=== PATIENT | male | born 1950 | race Caucasian/White ===

== ENCOUNTER 2019-06-08 13:13 | Observation (INO) | payer MEDICARE ==
[2019-06-08] MEDS ORDERED: Dexamethasone 10 MG/ML VIAL ONE (14:05)
[2019-06-08] MEDS ORDERED: Ondansetron PF 4 MG/2 ML Vial ONE (14:05)
[2019-06-08] MEDS ORDERED: Meclizine HCl 25 MG TAB ONE (14:05)
[2019-06-08 14:06] LABS: #Lymphocytes 0.8 thou/uL (1.20-3.40); #Monocytes 0.4 thou/uL (0.11-0.59); %Basophils 0.2 % (0.0-1.0); %Eosinophils 0.4 % (0.0-10.0); %Lymphocytes 8.3 % (21.0-51.0); %Monocytes 4.1 % (0.0-10.0); Hemoglobin 15.5 g/dL (14.0-18.0); Mean Corpuscular HGB CONC 34.7 g/dL (32.0-36.0); Mean Corpuscular Hemoglobin 33.5 pg (27.0-31.0); Mean Corpuscular Volume 96.5 fL (78.0-98.0); Mean Platelet Volume 8.2 fL (7.4-10.4); Platelet Count 229 thou/uL (130-400); RBC Distribution Width 11.2 % (11.5-14.5); Red Blood Cell (RBC) Count 4.63 mill/uL (4.70-6.10); White Blood Cell (WBC) Count 9.2 thou/uL (4.8-10.8)
[2019-06-08 14:32] LABS: ALT (SGPT) 29 U/L (8-55); AST (SGOT) 29 U/L (5-34); Albumin 4.3 g/dL (3.4-4.8); Alkaline Phosphatase 44 U/L (40-110); Anion Gap 16 mmol/L (10-20); BUN (Urea Nitrogen) 13 mg/dL (8.4-25.7); Bilirubin, Total 0.6 mg/dL (0.2-1.2); CK (CPK) 209 U/L (30-200); Calc. Creatinine Clearance 0 mL/min (70-130); Calcium 10.2 mg/dL (7.8-10.44); Carbon Dioxide 22 mmol/L (23-31); Chloride 104 mmol/L (98-107); Estimated GFR-MDRD 59; Globulin 2.5 g/dL (2.4-3.5); Glucose 121 mg/dL (80-115); Potassium 4.3 mmol/L (3.5-5.1); Protein, Total 6.8 g/dL (5.8-8.1); Sodium 138 mmol/L (136-145)
--- NOTE | 2019-06-08 14:34 | CT ---
CT BRAIN WITHOUT CONTRAST: HISTORY: Dizziness, headache, previous stroke in 2010. FINDINGS: There are old infarctions in the left frontal lobe and the left external capsule. There is appropria te ipsilateral dilatation of the left lateral ventricle. No evidence of acute infarct, hemorrhage, m idline shift, or abnormal extraaxial fluid collections is seen. The bony calvarium is intact. The v isualized paranasal sinuses and mastoid air cells are well aerated. IMPRESSION: No CT evidence of acute intracranial process. POS: [facility]
--- NOTE | 2019-06-08 14:45 | RAD ---
CHEST 1 VIEW: HISTORY: Dizziness. COMPARISON: None. FINDINGS: Lungs are clear. No pneumothorax or effusion. Cardiac silhouette and mediastinal contours within no rmal limits. Moderate degenerative change acromioclavicular joints. IMPRESSION: No acute intrathoracic abnormality. POS: [facility]
[2019-06-08 14:54] LABS: CKMB 4.8 ng/mL (0-6.6)
[2019-06-08 15:18] LABS: Bilirubin Negative (Negative); Blood, Urine Negative (Negative); Clarity Clear (Clear); Glucose, Urine (Dipstick) Normal (Negative); Leukocyte Negative Leu/uL (Negative); Nitrite Negative (Negative); Protein, Urine (Dipstick) 10 mg/dL (Neg-Trace); Urobilinogen Normal mg/dL (Less than 2)
[2019-06-08] MEDS ORDERED: Aspirin Chewable 81 MG TAB ONE (15:31)
--- NOTE | 2019-06-08 16:00 | MRI ---
MRI BRAIN WITHOUT CONTRAST: 06/08/19 INDICATIONS: Dizziness. COMPARISON: Comparison made to CT scan of head earlier today. FINDINGS: There is evidence of old infarct involving the left parasylvian region with volume loss and ex vacuo dilatation of the left lateral ventricle. Surrounding gliosis is present. There is no evidence of restricted diffusion. No evidence of acute infarct or mass. Evaluation of intracranial internal carotid arteries shows evidence of occlusion o the left intracran ial internal carotid artery. The left middle cerebral artery shows flow void indicating contralateral flow from the [place]. The anterior cerebral arteries, right middle cerebral, posterior cer ebral and basilar artery show flow voids. Dural venous sinuses are patent. The paranasal sinuses and mastoids appear clear. IMPRESSION: 1. Old infarct involving the left middle cerebral artery territory. 2. No acute infarct. 3. 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 Recommend further gisele luation of extracranial carotid arteries to assess site of occlusion. POS: [facility]
[2019-06-08] MEDS ORDERED: Diazepam 5 MG TAB PO PRN (17:48)
[2019-06-08] MEDS ORDERED: Acetaminophen 325 MG TAB PO PRN (17:49)
[2019-06-08] MEDS ORDERED: Senokot S 8.6-50 MG TAB PO PRN (17:49)
[2019-06-08 19:04] LABS: Troponin I 0.016 ng/mL (< 0.028)
[2019-06-08 19:45] VITALS: BMI 29.2
[2019-06-08] MEDS ORDERED: Diazepam 10 MG/2 ML SYRINGE IVP SCH (20:00)
[2019-06-08] MEDS: Meclizine HCl 25 MG TAB PO SCH (20:30)
[2019-06-08] MEDS ORDERED: Famotidine 20 MG TAB PO SCH (21:00)
[2019-06-08 21:22] LABS: Troponin I 0.014 ng/mL (< 0.028)
[2019-06-09] MEDS: Sodium Chloride 0.9% 1,000 ML IV SCH ×2 (00:17→15:16)
--- NOTE | 2019-06-09 00:36 | HP ---
PCP: None. CHIEF COMPLAINT: Dizziness. HISTORY OF PRESENT ILLNESS: Mr. 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 He reports intermittent feelings of vertigo, initial onset last Tuesday. Reports that he went to bed when he woke up around midnight last Tuesday, dizziness was much better. Reports that he got up this morning, came to work, came about 9 o'clock in the morning, reports that the dizziness returned, became much worse reports that anytime he opened his eyes and looked around. He became quite nauseated. Reports that he has a history of a stroke in 2009, has an occlusion of the internal carotid, which is what causes stroke in 2010. Reports that it is 100% occluded and they decided, in 2009, it was inoperable. He has a history of hypertension, high cholesterol. Reports that he has no residual deficits from the stroke in 2009. Denies any extremity numbness, tingling, or weakness. Denies any facial droop. Denies any speech problems. Dizziness is worse with movement and is slightly improved after meclizine, Decadron, and Zofran were given in the emergency room. The patient had a brain CT while in the emergency room, which showed no evidence of acute intracranial process. The patient then had a brain MRI that showed an old infarct involving the left middle cerebral artery territory. 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 The patient had a slightly elevated troponin in the indeterminate range of 0.034. Subsequent troponins have been negative. Chemistry unremarkable with carbon dioxide at 22, glucose at 121, CK at 209, otherwise within normal limits. White blood cell count 9.2, hemoglobin 15.5, hematocrit 44.7, and platelet count 229. Urine was negative. The patient will be admitted to the stroke unit for further evaluation. REVIEW OF SYSTEMS: The patient reports dizziness. Reports nausea. Denies vomiting. Denies abdominal pain. Denies numbness, tingling, or weakness in extremities. All systems were reviewed and were negative unless mentioned in the HPI. PAST MEDICAL HISTORY: Stroke in 2009, hypertension, and high cholesterol. PAST SURGICAL HISTORY: Bilateral carpal tunnels. PSYCHIATRIC HISTORY: None. SOCIAL HISTORY: Drinks socially. No drug. No smoking history. KNOWN ALLERGIES: None. CURRENT MEDICATIONS: 1. Aspirin 81 mg p.o. once a day. 2. Lipitor 20 mg daily. 3. Benicar 40-12.5 p.o. once a day. PHYSICAL EXAMINATION: VITAL SIGNS: Blood pressure 132/60, pulse is 86, respiratory rate is 12, temperature is 98.2, and pO2 sats are 97% on room air. CONSTITUTIONAL: The patient is alert and oriented to person, place, and time. HEENT: Head is atraumatic and normocephalic. Eyes, pupils are equally round and reactive to light. There is nystagmus present horizontal, which was worsened with head movement. ENT; mouth exam is normal. Mucous membranes are moist. NECK: Normal range of motion. Trachea is midline. RESPIRATORY/CHEST: Breath sounds are clear. Chest expansion is equal. CARDIOVASCULAR: Regular rate and rhythm. Heart sounds are normal. ABDOMEN: Nontender. Bowel sounds are heard. BACK: Normal range of motion. No tenderness. EXTREMITIES: Upper extremities, normal range of motion. Motor strength is normal. Radial pulses are normal. Lower extremities, normal range of motion. Motor strength is normal. Pedal pulses are normal. NEUROLOGIC: The patient is oriented to person, place, and time. Speech is normal. SKIN: Warm, dry, and normal in color that is visualized. DIAGNOSTIC DATA: EKG in the emergency room shows normal sinus rhythm, beats per minute 80, conduction normal, ST segments are normal. PLAN/ASSESSMENT: 1. Echocardiogram. PT and OT evaluation. ENT, Dr. Malone has been consulted. Meclizine 25 mg q.8 hours with some Valium p.r.n. as needed. 2. History of hypertension. We will start home medications. 3. History of hyperlipidemia. We will start home medications and reconciled. 4. Deep venous thrombosis and gastrointestinal prophylaxis has been started. 5. Case discussed with Dr. Gomez who agrees with plan. 6. Hospital course is dependent on clinical findings. Job ID: [id number]
[2019-06-09 05:20] LABS: #Basophils 0.1 thou/uL (0.0-0.2); #Lymphocytes 0.7 thou/uL (1.20-3.40); #Monocytes 0.3 thou/uL (0.11-0.59); #Neutrophils 10.1 thou/uL (1.40-6.50); %Basophils 0.6 % (0.0-1.0); %Eosinophils 0.1 % (0.0-10.0); %Lymphocytes 6.4 % (21.0-51.0); %Monocytes 2.5 % (0.0-10.0); %Neutrophils 90.5 % (42.0-75.0); Hemoglobin 15.3 g/dL (14.0-18.0); Mean Corpuscular HGB CONC 33.8 g/dL (32.0-36.0); Mean Corpuscular Hemoglobin 32.9 pg (27.0-31.0); Mean Corpuscular Volume 97.3 fL (78.0-98.0); Mean Platelet Volume 8.6 fL (7.4-10.4); Platelet Count 228 thou/uL (130-400); RBC Distribution Width 11.3 % (11.5-14.5); Red Blood Cell (RBC) Count 4.66 mill/uL (4.70-6.10); White Blood Cell (WBC) Count 11.2 thou/uL (4.8-10.8)
[2019-06-09] MEDS: Meclizine HCl 25 MG TAB PO SCH ×2 (05:31→15:16)
[2019-06-09 05:32] LABS: Anion Gap 12 mmol/L (10-20); BUN (Urea Nitrogen) 14 mg/dL (8.4-25.7); Calc. Creatinine Clearance 84 mL/min (70-130); Calcium 9.4 mg/dL (7.8-10.44); Carbon Dioxide 25 mmol/L (23-31); Cardiac Risk 2.5 (Less than 4.5); Chloride 104 mmol/L (98-107); Cholesterol 172 mg/dl (< 200 Desired); Estimated GFR-MDRD 69; Glucose 140 mg/dL (80-115); HDL Cholesterol 68 mg/dL (>60 Neg Risk); LDL Cholesterol, Calculated 95 mg/dL; Potassium 4.4 mmol/L (3.5-5.1); Sodium 137 mmol/L (136-145); Triglycerides 45 mg/dL (Less than 150)
[2019-06-09] MEDS ORDERED: Enoxaparin Sodium 40 MG/0.4 ML SYRINGE SC SCH ×2 (09:00→21:00)
[2019-06-09] MEDS ORDERED: Aspirin 81 mg Enteric Coated Tablet PO SCH (09:00)
[2019-06-09] MEDS ORDERED: Atorvastatin Calcium 10 MG TAB PO SCH (09:00)
[2019-06-09] MEDS ORDERED: Prevnar 13-Val Conj/PF 0.5 ML SYRINGE IM ONE (09:00)
[2019-06-09] MEDS ORDERED: methylPREDNISolone Sod Succ/PF 125 MG/2 ML VIAL IVP SCH (12:45)
[2019-06-09] MEDS ORDERED: Scopolamine 1.5 mg/72 hour Patch TD SCH (13:00)
--- NOTE | 2019-06-09 13:21 | PDOC.EVN ---
Event Note - Event Note Event Note: Full code. DPOA-spouse
[2019-06-09 15:35] VITALS: BP 160/74; TEMP 98.2
--- NOTE | 2019-06-09 16:57 | ULT ---
EXAM: Carotid Doppler PROVIDED CLINICAL HISTORY: None COMPARISON: None FINDINGS: Grayscale and color Doppler sonography with spectral analysis was performed of the extracranial carot id system bilaterally. There is atherosclerotic plaque noted involving the distal left internal carotid artery with prominently diminished peak systolic and end diastolic flow, suggesting near occl usion. There is no evidence for a hemodynamically significant right internal carotid artery stenosis by peak systolic velocity or ratio criteria. Antegrade flow is seen in the vertebral arteri es. IMPRESSION: Sonographic findings suggesting near occlusion involving the distal left internal carotid artery.
[2019-06-09] MEDS ORDERED: predniSONE 20 MG TAB PO SCH (17:00)
--- NOTE | 2019-06-09 17:35 | CON ---
DATE OF TELEMEDICINE CONSULTATION: 06/09/2019 CHIEF COMPLAINT: Dizziness. 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 The patient has been dizzy since last week. Last Tuesday or , he became very dizzy. He had vomiting as well. He felt the room was spinning. He did not have any ear symptoms such as tinnitus or hearing loss. He went to recovery room and went to the hotel, he could not open his eyes and again by midnight everything was gone. On Tuesday, he could not work. Tuesday, again he felt dizzy. He felt like something was shifting and yesterday he went back to the hotel. He was unable to work. No history of any weakness or vision loss or double vision is described. It is mostly vertigo and there is no history of loss of consciousness or fall. PREVIOUS MEDICAL HISTORY: The patient had a CVA in 2010. He received tPA at that time. Previous medical history also includes hypertension and hypercholesterolemia. PAST SURGICAL HISTORY: Bilateral carpal tunnel surgery, left carotid 100% blockage. FAMILY HISTORY: The patient's mother at 96 from CVA. Father at 63. He was a smoker. He had adenocarcinoma which was metastatic throughout. He has 2 sisters who are healthy and a daughter who is healthy. SOCIAL HISTORY: He drinks socially. No alcohol or smoking. No drug or smoking history and works as a nurse director social welfare. Lives with his . He is from out of town. ALLERGIES: NO KNOWN DRUG ALLERGIES. MEDICATIONS: He takes aspirin, Lipitor and Benicar at home. REVIEW OF SYSTEMS: CARDIAC: Negative for chest pain or palpitations. GI: Negative for nausea, but positive for vomiting. No diarrhea. OPHTHALMOLOGIC: Positive for vision issues due to dizziness and vertigo. ENT: Negative for hearing loss or tinnitus. HEMATOLOGIC: Negative for any bleeding diathesis. PULMONARY: Negative for cough or shortness of breath. LABORATORY DATA: His current workup lab; white count 11.2, hemoglobin 15.3, hematocrit 45.4, platelet count 228. Sodium 137, potassium 4.4, chloride 104, bicarb 25, BUN 14, creatinine 1.07, glucose 140. Lipid profile is within normal limits. Urinalysis is negative. His MRI of the brain was completed and MRI is negative for any acute infarct. He does have old occlusion of intracranial left ICA and old infarct of the left MCA territory. Carotid Doppler was completed and final report is pending. The patient declined CT angiogram and I discussed that with him. PHYSICAL EXAMINATION: VITAL SIGNS: Blood pressure 156/76, temperature 97.6, pulse rate is 86, respiratory rate 16, O2 saturation 100% on room air. GENERAL APPEARANCE: Well-built, well-nourished gentleman. CHEST: Clear vesicular breathing. CARDIOVASCULAR: S1 and S2 heard. No murmurs. ABDOMEN: Soft and nontender. No organomegaly noted. NEUROLOGIC: Cranial nerves 2 through 12 normal. Pupils 2 mm, reactive to light , nystagmus when he is looking to the left. Otherwise, extraocular movements are intact. Normal sensation of face bilaterally. Normal hearing bilaterally. Tongue midline. Normal elevation of palate. Motor exam; bulk normal, tone normal. Strength 5/5 throughout in upper and lower extremities. Muscle groups tested in iliopsoas, hamstrings, quadriceps, ankle dorsiflexion, plantar flexion, deltoid, biceps, triceps, wrist extension and flexion, finger extension and flexion bilaterally and sensory normal to touch bilaterally. Cerebellar, normal [id number] and [id number]. IMPRESSION AND PLAN: The patient is a 68-year-old man, who has been having vertigo for the past week with 2 days of severe episodes based one week apart. He has never had vertigo. He has a blocked left carotid artery. He had CT angiogram today. He completed his ultrasound scan. If the ultrasound shows any abnormalities in the right carotid, please complete CT angio and consult vascular surgery. At this time, his examination shows nystagmus more to the left and he had slightly abnormal gait with mild unsteadiness. Otherwise, rest of the neurological exam is normal. I do think his current diagnosis is more consistent with peripheral vertigo. I am concerned about the status of his carotid arteries. I would definitely make sure that the right carotid is clear before he can go home. Unfortunately, he declined CT angiogram when I requested. For now, we can continue aspirin and I also understand he had an ENT evaluation. Please follow recommendations. I started scopolamine patch for his vertigo. I will see him again tomorrow as needed. Job ID: [id number] [facility]
--- NOTE | 2019-06-09 17:38 | DIS ---
DATE OF ADMISSION: 06/08/2019 DATE OF DISCHARGE: 06/09/2019 DISCHARGE DISPOSITION: Home. FOLLOWUP: 1. Follow up with primary care physician in 1 week. 2. Follow up with ENT, Dr. Alex Malone in 1 week. 3. The patient was seen on the day of discharge. Denies any new complaints. No chest pain, shortness of breath, or palpitations reported. Dizziness and vertigo are improving. DISCHARGE MEDICATIONS: 1. Meclizine as needed. 2. Aspirin 81 mg daily. 3. Lipitor 10 mg daily. 4. Benicar/hydrochlorothiazide 40/12.5 daily. 5. Prednisone 40 mg daily for next 5 days. 6. Scopolamine patch 1.5 mg every 3 days as needed. 7. Inpatient consult and Neurology Dr. Cummings. 8. ENT Dr. Malone. BRIEF HOSPITAL COURSE: The patient is a 68-year-old male with hypertension, hyperlipidemia, CVA in 2009 secondary to complete occlusion of the left internal carotid artery, presented to the emergency room with dizziness and vertigo. Please refer to the history and physical for further details. The patient was admitted to the hospital with diagnosis of vertigo, dizziness, rule out cerebrovascular accident. He underwent MRI of the brain that was negative for acute CVA. It showed old infarct involving the left MCA territory. A carotid Doppler showed near occlusion involving the distal left internal carotid artery. He was evaluated by ENT and Neurology. 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 He recommended short course of prednisone. His symptoms are gradually improving. He was evaluated by Physical Therapy as well. He appears stable for discharge. FINAL DIAGNOSES: 1. 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 2. Hypertension. 3. Hyperlipidemia. 4. History of left MCA territory CVA secondary to left ICA occlusion. 5. Chronic kidney disease stage 2. 6. The patient understands the above plan of care. Job ID: [id number]
--- NOTE | 2019-06-10 18:05 | CON ---
DATE OF CONSULTATION: CHIEF COMPLAINT: Dizziness. HISTORY OF PRESENT ILLNESS: Mr. 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 He reports intermittent episodes of vertigo that are positional in nature and have lasted for about one week or less since last Tuesday. He reports previously being feeling sick like he may have an upper respiratory tract infection and had some general dizziness, which went away. However, recently he has had some episodes, where he moves or turns and has some severe vertigo and after that room spinning vertigo sensation, he has been quite nauseated and did have an episode of vomiting. He does have a past medical history that is significant for a stroke in 2009, where he has an internal carotid occlusion that was not stented or had any embolic treatment. The patient does have a history of hypertension and elevated cholesterol and does have sleep apnea; however, he does not currently wear a CPAP mask. His dizziness and nausea and vomiting did improve with treatment with meclizine and Zofran and Phenergan. The patient had a brain CT as well as an MRI that did not show any evidence of an acute stroke and so, ENT was consulted to evaluate for any vestibular causes for his vertiginous events. PAST MEDICAL HISTORY: Please see HPI. PAST SURGICAL HISTORY: No head and neck surgeries. CURRENT MEDICATIONS: 1. Versed. 2. Meclizine. 3. Zofran. 4. Phenergan. ALLERGIES: NO KNOWN DRUG ALLERGIES. SOCIAL HISTORY: The patient currently lives in [facility] and is working intermittently in [facility]; however, will be eventually transition to living full-time and [facility]. REVIEW OF SYSTEMS: SKIN: Negative. EYES: Negative. EARS, NOSE, AND THROAT: Please see HPI, otherwise negative. RESPIRATORY: Negative. CARDIOVASCULAR: Negative. GASTROINTESTINAL: Negative. MUSCULOSKELETAL: Negative. NEUROLOGIC: Negative. HEMATOLOGIC: Negative. LYMPHATIC: Negative. IMMUNOLOGIC: Negative. ENDOCRINE: Negative. PHYSICAL EXAMINATION: GENERAL: Alert and oriented. No acute distress. HEAD AND FACE: Normocephalic and atraumatic. No skin or facial lesions. No maxillary tenderness. No frontal tenderness. No parotid gland masses, lesions, or tenderness. No submandibular gland masses or tenderness. EYES: Equally round and reactive to light. Pupils are equally round. There is very mild nystagmus on lateral gaze to the left. EARS: Right and left pinnae are normal. EACs are clear. TMs are intact with normal landmarks. No evidence of effusion or infection. NOSE: External nose is normal. Nasal mucosa is healthy. Turbinates are healthy. No masses or lesions. ORAL CAVITY: Lips, teeth, and gums are normal. Oral mucosa is moist without lesions. Tongue and floor of mouth are soft without masses. Palate and uvula without lesions and with symmetric elevation. NECK: No lymphadenopathy. Trachea is midline. Thyroid is normal in size without apparent nodules. NEURO: Cranial nerves 2 through 12 are grossly intact. Mood and affect are normal. [place]-Hallpike exam is positive to the left with rotational nystagmus. ASSESSMENT AND PLAN: A 68-year-old male patient with a past medical history of stroke in 2009, hypertension, and hyperlipidemia, who is now presenting with several episodes of short duration of room spinning sensation with rotational nystagmus with David-Hallpike maneuver to the left. At this time, I have performed a canalith repositioning maneuver and afterwards, the patient started to feel better. The patient did ambulate and gait was stable after ambulation. Given that the patient is currently taking a benzodiazepine as well as meclizine. His nystagmus on [place]-Hallpike will likely be decreased and he may have potentially may have bilateral symptoms, though he is clearly positive to the left. Given these episodes, I recommend having the patient followup in my clinic in one week and I gave the patient my clinic information in order to do a repeat David-Hallpike maneuver as well as further canalith repositioning techniques as needed. Job ID: [id number]
--- NOTE | 2019-06-16 15:45 | EKG ---
Test Reason : DIZZINES Blood Pressure : / mmHG Vent. Rate : 080 BPM Atrial Rate : 080 BPM P-R Int : 176 ms QRS Dur : 106 ms QT Int : 378 ms P-R-T Axes : 053 028 019 degrees QTc Int : 435 ms Normal sinus rhythm Normal ECG Confirmed by CHRISTIANE NAYAK, LONG ([id number]), digital editor SYEDA FREGOSO ([id number]) on 06/16/2019 3:44:25 PM Referred By: CHRISTIANE Confirmed By:LONG GRANDE MD
== END 2019-06-09 18:03 | disposition home or self-care (01) ==
LOC: ERS 13:13 → 2SE 18:45
PROVIDERS: ADMIT Internal Medicine; ATTEND Internal Medicine
DX: R42 Dizziness and giddiness (principal); I12.9 Hypertensive chronic kidney disease with stage 1 through stage 4 chronic kidney disease, or unspecified chronic kidney disease; N18.2 Chronic kidney disease, stage 2 (mild); E78.00 Pure hypercholesterolemia, unspecified; E78.5 Hyperlipidemia, unspecified; Z79.82 Long term (current) use of aspirin; Z79.899 Other long term (current) drug therapy; Z86.73 Personal history of transient ischemic attack (TIA), and cerebral infarction without residual deficits
CPT/HCPCS: 70450; 70551; 71045; 80048; 80053; 80061; 81003; 82550; 82553; 83880; 84443; 84484 ×2; 85025 ×2; 90670; 93005; 93880; 96361 ×2; 96374; 96375 ×3; 96376; 97139 ×4; 99285; G0009; G0378 ×3; 36415; 90471; J1100; J2405; J2930; J3360; J7512; J8597